=== PATIENT | female | born 1980 | race Caucasian/White ===

== ENCOUNTER 2018-08-23 16:45 | Emergency (ER) | payer SELFPAY ==
[2018-08-23] MEDS: SOD CHLORIDE 0.9% 1,000 ML IV (20:24)
[2018-08-23 20:37] LABS: ADD UMIC YES; UR ASCORBIC ACID NEGATIVE (NEGATIVE); UR BILIRUBIN (Dip) NEGATIVE (NEGATIVE); UR BLOOD (Dip) 3+ mg/dL (NEGATIVE); UR CLARITY CLEAR (CLEAR); UR COLOR YELLOW (YELLOW); UR GLUCOSE (Dip) NEGATIVE (NEGATIVE); UR KETONES (Dip) NEGATIVE (NEGATIVE); UR LEUKOCYTE ESTERASE (Dip) NEGATIVE Leu/ul (NEGATIVE); UR MUCUS FEW /HPF (NONE SEEN); UR NITRITE (Dip) NEGATIVE (NEGATIVE); UR RBC 2 /HPF (0-5); UR SPECIFIC GRAVITY (Dip) 1.027 (1.003-1.030); UR SQUAMOUS EPITHELIAL CELL FEW /HPF (FEW); UR TOTAL PROTEIN (Dip) NEGATIVE (NEGATIVE); UR UROBILINOGEN (Dip) 1+ mg/dL (NEGATIVE); UR WBC 3 /HPF (0-5)
[2018-08-23] MEDS: PROCHLORPERAZINE 10 MG INJ IV (20:43)
[2018-08-23] MEDS: DIPHENHYDRAMINE 50 MG INJ IV (20:43)
[2018-08-23] MEDS: KETOROLAC 30 MG INJ IV (20:44)
== END 2018-08-23 21:44 | disposition home or self-care (01) ==
LOC: FTE 16:45
DX: R51 Headache (principal); I10 Essential (primary) hypertension
CPT/HCPCS: 81001; 81025; 96374; 96375; 99284-25